=== PATIENT | female | born 1945 | race Caucasian/White ===

== ENCOUNTER 2024-04-03 10:55 | Outpatient (CLI) | payer MEDICARE | END 2024-04-03 10:56 | disposition home or self-care (01) | LOC: CSHWCC 10:55 | PROVIDERS: ATTEND Nurse Practitioner Family | DX: Z87.2 Personal history of diseases of the skin and subcutaneous tissue (principal) | CPT/HCPCS: 99212; G0463 ==

== ENCOUNTER 2024-06-01 09:37 | Outpatient (CLI) | payer MEDICARE | END 2024-06-01 09:38 | disposition home or self-care (01) | LOC: CSHWCC 09:37 | PROVIDERS: ATTEND Nurse Practitioner Family | DX: I87.331 Chronic venous hypertension (idiopathic) with ulcer and inflammation of right lower extremity (principal); L97.212 Non-pressure chronic ulcer of right calf with fat layer exposed; I73.9 Peripheral vascular disease, unspecified; Z85.828 Personal history of other malignant neoplasm of skin | CPT/HCPCS: 11042; 87070; 87077; 87186; 87205 ==

== ENCOUNTER 2024-06-08 10:57 | Outpatient (CLI) | payer MEDICARE | END 2024-06-08 10:58 | disposition home or self-care (01) | LOC: CSHWCC 10:57 | PROVIDERS: ATTEND Nurse Practitioner Family | DX: I87.331 Chronic venous hypertension (idiopathic) with ulcer and inflammation of right lower extremity (principal); L97.212 Non-pressure chronic ulcer of right calf with fat layer exposed; I73.9 Peripheral vascular disease, unspecified; Z85.828 Personal history of other malignant neoplasm of skin | CPT/HCPCS: 11042 ==

== ENCOUNTER 2024-06-15 11:56 | Outpatient (CLI) | payer MEDICARE | END 2024-06-15 11:57 | disposition home or self-care (01) | LOC: CSHWCC 11:56 | PROVIDERS: ATTEND Family Medicine | DX: I87.331 Chronic venous hypertension (idiopathic) with ulcer and inflammation of right lower extremity (principal); L97.212 Non-pressure chronic ulcer of right calf with fat layer exposed; I73.9 Peripheral vascular disease, unspecified; Z85.828 Personal history of other malignant neoplasm of skin | CPT/HCPCS: 11042; G0463; 99212 ==

== ENCOUNTER 2024-06-29 12:17 | Outpatient (CLI) | payer MEDICARE | END 2024-06-29 12:18 | disposition home or self-care (01) | LOC: CSHWCC 12:17 | PROVIDERS: ATTEND Nurse Practitioner Family | DX: I87.331 Chronic venous hypertension (idiopathic) with ulcer and inflammation of right lower extremity (principal); L97.212 Non-pressure chronic ulcer of right calf with fat layer exposed; I73.9 Peripheral vascular disease, unspecified; Z85.828 Personal history of other malignant neoplasm of skin | CPT/HCPCS: 11042; G0463; 99212 ==

== ENCOUNTER 2024-07-13 10:28 | Outpatient (CLI) | payer MEDICARE | END 2024-07-13 10:29 | disposition home or self-care (01) | LOC: CSHWCC 10:28 | PROVIDERS: ATTEND Nurse Practitioner Family | DX: I87.331 Chronic venous hypertension (idiopathic) with ulcer and inflammation of right lower extremity (principal); L97.212 Non-pressure chronic ulcer of right calf with fat layer exposed; I73.9 Peripheral vascular disease, unspecified; Z85.828 Personal history of other malignant neoplasm of skin | CPT/HCPCS: 97597; G0463; 99212 ==

== ENCOUNTER 2024-07-23 14:04 | Outpatient (CLI) | payer MEDICARE | END 2024-07-23 14:05 | disposition home or self-care (01) | LOC: CSHWCC 14:04 | PROVIDERS: ATTEND Nurse Practitioner Family | DX: I87.331 Chronic venous hypertension (idiopathic) with ulcer and inflammation of right lower extremity (principal); L97.212 Non-pressure chronic ulcer of right calf with fat layer exposed; I73.9 Peripheral vascular disease, unspecified; Z85.828 Personal history of other malignant neoplasm of skin | CPT/HCPCS: 97597 ==

== ENCOUNTER 2024-08-17 11:06 | Outpatient (CLI) | payer MEDICARE | END 2024-08-17 11:07 | disposition home or self-care (01) | LOC: CSHWCC 11:06 | PROVIDERS: ATTEND Nurse Practitioner Family | DX: I87.331 Chronic venous hypertension (idiopathic) with ulcer and inflammation of right lower extremity (principal); L97.212 Non-pressure chronic ulcer of right calf with fat layer exposed; I73.9 Peripheral vascular disease, unspecified; Z85.828 Personal history of other malignant neoplasm of skin | CPT/HCPCS: 97597 ==